=== PATIENT | male | born 1950 | race Caucasian/White ===

== ENCOUNTER → 2016-09-06 | Day surgery (SDC) | payer BC ==
[~2016-09-06] MED LIST: Acetaminophen TAB* 325 MG PO PRN; Buffered Lidocaine 1% SYR 3ML* 3 ML/SYR SYRINGE INTRADERM ONE; Cyclopentolate 1% OPTH.SOL* 2 ML BTL ONE; Flurbiprofen 0.03% OPTH.SOL* 2.5 ML BTL ONE; Lidocaine 1% MPF* 2 ML VIAL ONE; Midazolam* 1 MG/ML 2 ML VIAL (2 MG) ONE; Neomycin/Polymy/Dex OPHTH.OIN* 3.5 GM ONE; Phenylephr/Ketorolac 1%/0.3% OPH DROP BTL ONE; Phenylephrine 2.5% OPTH.SOL* 2 ML BTL ONE; Tetracaine 0.5% OPTH.SOL 4 ML* 1 DROP BTL ONE; Tropicamide 1% OPTH.SOL* BTL ONE
[2016-09-06 10:47] VITALS: BP 116/75
--- NOTE | 2016-09-07 22:54 | OP ---
DATE OF OPERATION: 09/06/16 - [place] [facility] DATE OF : 52 SURGEON: Govind Rivera MD ENCYCLOPEDIA RESEARCH WORKER: None. ANESTHESIOLOGIST: Fede Marina DO ANESTHESIA: Topical with intravenous sedation. PRE-OP DIAGNOSES: Cataract with astigmatism and nystagmus, right eye. POST-OP DIAGNOSES: Cataract with astigmatism and nystagmus, right eye. OPERATIVE PROCEDURE: Phacoemulsification, toric posterior chamber intraocular implant, right eye. COMPLICATIONS: None. BLOOD LOSS: None. DESCRIPTION OF PROCEDURE: The patient was seen preoperatively in the holding area, where a malcom was made at the 6 o'clock position of the limbus of his right eye while he was in upright position. He was subsequently brought to the operating room where he was given a small amount of intravenous sedation and a drop of tetracaine into that right eye. The patient was prepped and draped in the usual sterile fashion for ophthalmic surgery and attention was directed to the right eye. His nystagmus had dampened some degree with use of Versed and it was felt that it would be safe to proceed with surgery. Attention was directed to the right eye and a paracentesis was created at the 11 o'clock position. 0.1 cc of 1% preservative- free lidocaine was injected into the anterior chamber followed by DisCoVisc. The eye was digitally stabilized while a 2.75- mm keratome was used to create a triplanar clear corneal incision at the 9 o' clock position. A continuous curvilinear capsulorrhexis was created with a cystotome and Utrata forceps. BSS on a cannula was used to hydrodissect the lens from the capsule. Phacoemulsification was performed in a divide-and- conquer technique to create four fragments, which were removed. Residual cortical material was removed with irrigation and aspiration. It was noted that the capsular bag was a bit floppy and the zonules appeared loose in the superotemporal quadrant. Care was taken not to put much traction into this area. Capsular , however, was performed along the posterior capsule and in this region as an adherent plaque of cataract needed to be removed. This was performed uneventfully with the capsule and zonules remaining intact. The capsular bag was then inflated cautiously with Healon. A Hernandes marker was used to malcom the 73-degree axis at the limbus. An [id number] diopter lens was atraumatically folded and inserted into the capsular bag. It was gently rotated to the proper axial line with a Sinskey hook. The Sinskey hook was then placed in the paracentesis and used to hold the lens at the axial alignment while irrigation and aspiration was performed to remove the viscoelastic from the eye. The Sinskey hook was removed. BSS on a cannula was used to hydrate the corneal stroma and seal the wound. At the end of the case, the pupil was round, the lens was centered stable, and axially aligned. The eye pressure appeared normal and the wound was watertight. The speculum was removed and topical Maxitrol ointment was placed on the surface of the eye. Omidria had been used in the irrigating solution during this procedure. A clear shield was taped over the surface of the eye and the patient was awakened uneventfully and sent to recovery room in stable condition. [id number]/[id number] #: [id number] MTDD
== END | disposition home or self-care (01) ==
LOC: OREAST 08:10
PROVIDERS: ATTEND Ophthalmology
DX: H25.11 Age-related nuclear cataract, right eye (principal); H52.201 Unspecified astigmatism, right eye; E78.00 Pure hypercholesterolemia, unspecified; N40.0 Benign prostatic hyperplasia without lower urinary tract symptoms
CPT/HCPCS: A9270-GY; C9447; J2250; V2787

== ENCOUNTER 2018-11-18 19:42 | Emergency (ER) | payer MEDICARE, BC ==
--- NOTE | 2018-11-18 19:59 | ED ---
Cardiac Resuscitation - HPI Summary HPI Summary: HPI LIMITED DUE TO LEVEL 5 CAVEAT - CARDIAC ARREST This patient is a 68 year old M brought in by ambulance to [facility] with a chief complaint of cardiac arrest that began [facility]. Per EMS, the patients was in the shower for 10-15 minutes, and exited the shower to find the patient unconscious. Per EMS, the patient was in asystole upon their arrival. EMS gave the patient 5 mg EPI, 300 mg of amiodarone, and shocked the patient once; per EMS, the patient went into ventricular fibrillation and then back to asystole. - History of Current Complaint Stated Complaint: CARDIAC ARREST Hx Obtained From: Patient Onset/Duration: Minutes/Hours: - 45 minutes [facility] Arrest Witnessed: No - Allergies/Home Medications Allergies/Adverse Reactions: Allergies Allergy/AdvReac Type Severity Reaction Status Date / Time MS Sulfa Drugs [Sulfa Drugs] Allergy Nausea Verified 09/06/16 08:30 - Past Medical History Past Medical History: Unobtainable Due to Extremis - PMHx LIMITED DUE TO LEVEL 5 CAVEAT - CARDIAC ARREST - Family History Family History: Unobtainable Due to Extremis - PMHx LIMITED DUE TO LEVEL 5 CAVEAT - CARDIAC ARREST - Social History Social History: Unobtainable Due to Extremis - PMHx LIMITED DUE TO LEVEL 5 CAVEAT - CARDIAC ARREST - Review of Systems Review of Systems: Unobtainable Due to Extremis - ROS LIMITED DUE TO LEVEL 5 CAVEAT - CARDIAC ARREST Physical Examination - Summary Physical Exam Summary: PE LIMITED DUE TO LEVEL 5 CAVEAT - CARDIAC ARREST Appearance: Well-nourished, no signs of trauma Skin: dry, no obvious rash, cool extremities Eyes: sclera anicteric, no conjunctival pallor ENT: mucous membranes moist, pharynx appears normal Neck: Supple Respiratory: no respiratory effort Cardiovascular: no pulses Abdomen: Soft Musculoskeletal: Normal Neurological: unconscious, no response to stimuli - Physical Examination Triage Information Reviewed: Yes Completion Of Physical Exam Limited Due To: Other - LEVEL 5 CAVEAT - CARDIAC ARREST Cardiac Resus. Course/Dx - Course Course Of Treatment: LIMITED DUE TO LEVEL 5 CAVEAT CARDIAC ARREST. This patient is a 68 year old M brought in by ambulance to [facility] with a chief complaint of cardiac arrest that began [facility]. Per EMS, the patients was in the shower for 10-15 minutes, and exited the shower to find the patient unconscious. Physical Exam Findings: Unconscious, no respiratory effort, cool extremities, no pulses, no signs of trauma. ABC alert called at 193. The patient went 45 minutes without return of pulse. Time of : 1942. Spoke with the family, with RN Latha, at 1944. - Diagnoses Provider Diagnoses: Cardiac arrest, Ventricular fibrillation During the Visit The Following Alert/Code Occurred: ABC Alert - Called at 1935 Discharge - Sign-Out/Discharge Documenting (check all that apply): Patient Departure Patient Received Moderate/Deep Sedation with Procedure: No - Discharge Plan Condition: Disposition: Referrals: Mckinley Martin MD [Primary Care Provider] - - Billing Disposition and Condition Condition: Disposition: - Attestation Statements Document Initiated by Naomi: Yes Documenting Scribe: Soumya Hathaway Provider For Whom Naomi is Documenting (Include Credential): Dr. Keyur Crisostomo MD Scribe Attestation: Soumya Lopez scribed for Dr. Keyur Crisostomo MD on 11/19/18 at 0343. Scribe Documentation Reviewed: Yes Provider Attestation: The documentation as recorded by the Soumya aquino accurately reflects the service I personally performed and the decisions made by me, Dr. Keyur Crisostomo MD Status of Scribe Document: Viewed
[2018-11-18 20:49] VITALS: BP 0/0
== END 2018-11-18 22:59 | disposition expired ==
LOC: ED 19:42
DX: I46.9 Cardiac arrest, cause unspecified (principal); I49.01 Ventricular fibrillation; Z88.2 Allergy status to sulfonamides
CPT/HCPCS: 99285